=== PATIENT | male | born 1960 | race Caucasian/White ===

== ENCOUNTER 2019-07-18 08:41 | Day surgery (SDC) | payer BC ==
[~2019-07-18] VITALS: Ht 177.8 cm; Wt 71.3 kg
[~2019-07-18 08:41] MED LIST: Cialis20 MG PO; [UNRECOGNIZED DRUG - OTHER]
== END 2019-07-18 11:00 | disposition home or self-care (01) ==
LOC: ORSCSDS 08:41
PROVIDERS: Surgery
PROC: 0DJD8ZZ Inspection of Lower Intestinal Tract, Via Natural or Artificial Opening Endoscopic (ICD-10-PCS; principal; 2019-07-18 10:00)
DX: Z12.11 Encounter for screening for malignant neoplasm of colon (principal); Z79.899 Other long term (current) drug therapy
CPT/HCPCS: J2704; J7120